=== PATIENT | male | born 1990 | race Caucasian/White ===

== ENCOUNTER 2017-01-08 17:35 | Emergency (ER) | payer OTHER ==
[2017-01-08] MEDS ORDERED: XYLOCAINE 2% INFILTRATI ONE ×2 (21:25→22:13)
[2017-01-08] MEDS ORDERED: NORCO 5/325 PO ONE (21:37)
[2017-01-08] MEDS ORDERED: BOOSTRIX IM ONE (21:37)
--- NOTE | 2017-01-08 22:17 | Emergency Department Report ---
ED Laceration HPI - HPI Chief Complaint: Wound/Laceration Stated Complaint: LACERATED RIGHT HAND Time Seen by Provider: 01/08/17 21:37 Occurred When: Today Location: Upper Extremity Severity: mild Tetanus Status: Not up to Date Laceration Symptoms: Yes Pain, No Foreign Body Sensation, No Numbness, No Weakness Other History: 18-year-old male with no past medical history is presented to the ED complaining of laceration. Patient states he sustained laceration to the right hand while he was cleaning dishes. Patient states he accidentally broke a glass and cut his hand on a piece of glass. Patient states he felt no foreign bodies in the hand, the peice that cut him was thick and did not shatter. Pt denies trauma elsewhere. Bleeding is controlled ED Review of Systems ROS: Stated complaint: LACERATED RIGHT HAND Other details as noted in HPI Comment: All other systems reviewed and negative Skin: other (laceration ) ED Past Medical Hx - Past Medical History Previous Medical History?: No Additional medical history: rectal prolapse - Surgical History Additional Surgical History: laproscopic sgy - Social History Smoking Status: Current Every Day Smoker Substance Use Type: Alcohol - Medications Home Medications: Home Medications Medication Instructions Recorded Confirmed Last Taken Type HYDROcodone/APAP 5-325 [Warren 1 each PO Q6HR PRN #6 tablet 01/08/17 Unknown Rx 5/325] Ibuprofen [Motrin 800 MG tab] 800 mg PO Q8HR PRN #20 tablet 01/08/17 Unknown Rx Laceration Physical Exam - Exam General: Vital signs noted. No distress. Alert and acting appropriately. Wound Length (cm): 1 (patient has 1 cm superficial laceration to the base of fifth metacarpal , no bleeding noted ) Laceration Exam: No Foreign Body, No Exposed Tendon, Vessel, or Nerve, No Tendon Injury, No Normal Distal CMS ED Course Vital Signs 01/08/17 01/08/17 17:40 22:11 Temperature 98.6 F Pulse Rate 107 H Respiratory 18 18 Rate Blood Pressure 135/93 O2 Sat by Pulse 97 Oximetry - Reevaluation(s) Reevaluation #1: 01/08/17 22:15 pt was slightly diaphoretic during the laceration repair procedure however now that it is complete, he is well-appearing. - Laceration /Wound Repair Right Upper Hand Wound Location: upper extremity Wound Explored: clean Betadine Prep?: Yes Anesthesia: 1% Lidocaine Wound Debrided: minimal Wound Repaired With: sutures Suture Size/Type: 3:0, proline Number of Sutures: 3 Sterile Dressing Applied?: Yes Progress: tolerated procedure well ED Medical Decision Making - Medical Decision Making 26 yo male no past medical history has presented to ED complaining of laceration to the right hand. Patient tolerated laceration repair well and agrees he is stable to discharge home. Patient's tetanus has been updated. He has been counseled on return precautions. Patient's counseling department chair of suture removal 7-10 days. Critical care attestation.: If time is entered above; I have spent that time in minutes in the direct care of this critically ill patient, excluding procedure time. ED Disposition Clinical Impression: Laceration of right hand Disposition: DC- TO HOME OR SELFCARE Is pt being admited?: No Does the pt Need Aspirin: No Condition: Stable Instructions: Suture Care (ED), Laceration (ED), Finger Laceration (ED) Additional Instructions: please have sutures removed in 7-10 days Prescriptions: HYDROcodone/APAP 5-325 [Warren 5/325] 1 each PO Q6HR PRN #6 tablet PRN Reason: Pain Ibuprofen [Motrin 800 MG tab] 800 mg PO Q8HR PRN #20 tablet PRN Reason: Pain , Severe (7-10) Referrals: PRIMARY CARE, [Primary Care Provider] - 7-10 days NIXON MCKEON MD [Staff Physician] - 7-10 days Forms: Work/School Release Form(ED)
[2017-01-08] MEDS ORDERED: TRIPLE ANTIBIOTIC TP ONE (22:33)
[2017-01-08 22:47] VITALS: BP 105/55
== END 2017-01-08 22:40 | disposition home or self-care (01) ==
LOC: ED 17:35
DX: S61.411A Laceration without foreign body of right hand, initial encounter (principal); F17.200 Nicotine dependence, unspecified, uncomplicated; W25.XXXA Contact with sharp glass, initial encounter; Y93.89 Activity, other specified; Y92.89 Other specified places as the place of occurrence of the external cause; Y99.8 Other external cause status
CPT/HCPCS: 90471; 90715; A6250